=== PATIENT | female | born 1960 | race Caucasian/White ===

== ENCOUNTER → 2016-08-14 | Outpatient (CLI) | payer OTHER ==
--- NOTE | 2016-08-14 13:25 | MA ---
Screening Digital Mammogram With iCAD Analysis Clinical Indications: Routine screening. Technique: Standard cephalocaudal projections are obtained. Digital breast tomosynthesis was performe d in the MLO projection with reconstruction at 1.0 mm slice thickness and composite MLO views reconst ructed. This examination is processed by the iCAD computer aided detection system. Comparison: December 2014, November 2013, November 2012, July 2010, October 2008, October 2007. Breast density: Type C: Heterogeneously dense. Findings: CAD was reviewed. There is a small nodular asymmetry in the central right breast best visua lized on the tomographic series. No suspicious microcalcifications are identified. The left breast is stable in appearance. Impression: Right breast nodular asymmetry requires further evaluation. BI-RADS 0. Recommendation: Spot compression assessment of the right breast with ultrasound suggested if the abno rmality persists on diagnostic evaluation. [facility] will send a result letter to the patient. Negative mammography should not preclude additional workup of a clinically suspicious finding. The patient's information is entered into a reminder system with a target due date for her next mammo gram.
== END ==
LOC: FIMAGING 11:42
DX: Z12.31 Encounter for screening mammogram for malignant neoplasm of breast (principal)

== ENCOUNTER → 2016-08-23 | Outpatient (CLI) | payer OTHER | LOC: FIMAGING 09:05 | PROVIDERS: ATTEND Internal Medicine | DX: Z12.39 Encounter for other screening for malignant neoplasm of breast (principal); R92.8 Other abnormal and inconclusive findings on diagnostic imaging of breast | CPT/HCPCS: G0206 ==

== ENCOUNTER → 2017-01-07 | Outpatient (CLI) | payer OTHER | LOC: BMCIMAGING 15:44 | PROVIDERS: ATTEND Family Medicine | DX: S52.592A Other fractures of lower end of left radius, initial encounter for closed fracture (principal) ==

== ENCOUNTER 2017-01-15 11:33 | Day surgery (SDC) | payer OTHER ==
[2017-01-15] MEDS ORDERED: CLINDAMYCIN 900 MG/DEXTROSE 50 ML IV ONE (12:41)
--- NOTE | 2017-01-15 12:45 | PDHPUP ---
History & Physical Update H&P update statement: This history and physical update is based on an assessment of the patient which was completed after admission or registration (within 24 hours), but prior to the surgery/procedure. H&P update: H&P reviewed & patient examined, no change in patient's condition since H&P completed
[2017-01-15] MEDS ORDERED: LR 1,000 ML IV ONE (12:53)
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
[2017-01-15] MEDS ORDERED: MIDAZOLAM 2 MG/2 ML VIAL IVP ONE (13:14)
[2017-01-15] MEDS ORDERED: PROPOFOL 200 MG/20 ML VIAL ONE (13:28)
[2017-01-15] MEDS ORDERED: fentaNYL 100 MCG/2 ML INJ ONE ×2 (13:29→14:57)
[2017-01-15] MEDS ORDERED: MIDAZOLAM 2 MG/2 ML VIAL ONE (13:47)
[2017-01-15] MEDS ORDERED: BUPIVACAINE 0.5% 30 ML SDV ONE (13:56)
[2017-01-15] MEDS ORDERED: fentaNYL 100 MCG/2 ML INJ IVP PRN (14:12)
[2017-01-15] MEDS ORDERED: NALOXONE HCL 0.4 MG/ML INJ IVP PRN (14:12)
--- NOTE | 2017-01-15 14:14 | POSTOPPROG ---
Post Op Note Date of Operation: 01/15/17 Surgeon: Pablo Israel Anesthesiologist: Isidoro Ford Anesthesia: LMA Pre-op Diagnosis: Left Distal Radius and ulna fracture Post-op Diagnosis: same Indication: displacement of fracture Procedure: fluoroscopic reduction and k wire fixation of ulnar styloid and fluoroscopi Findings: as above Inf/Abcess present in the surg proc area at time of surgery?: No Depth: Deep Incisional (Fascial) EBL: Minimal Total fluids administered: 500cc Complications: none
--- NOTE | 2017-01-15 14:14 | POSTANESTH ---
Post Anesthetic Evaluation Cardiovascular Status: Normal, Stable Respiratory Status: Normal, Stable Level of Consciousness/Mental Status: Can Participate in Eval Pain Control: Adequate, Prn Tx Ordered Nausea/Vomiting Control: Adequate, Prn Tx Ordered Complications Possibly Related to Anesthesia: None Noted
[2017-01-15 14:26] VITALS: TEMP 97.9
[2017-01-15 14:53] VITALS: PULSE 62
--- NOTE | 2017-01-15 14:59 | GOP ---
[f rep st] OPERATIVE REPORT DATE OF OPERATION: 01/15/2017 SURGEON: Pablo Israel MD PREOPERATIVE DIAGNOSIS: Left distal radius and ulnar styloid fracture. POSTOPERATIVE DIAGNOSIS: Left distal radius and ulnar styloid fracture. PROCEDURE PERFORMED: Fluoroscopic reduction and percutaneous K-wire fixation of ulnar styloid fract ure, which was displaced; correction of some of the dorsal tilt of the distal radius restoring lengt h of the distal radius. FINDINGS: INDICATIONS: Ulnar positive variant and displacement of ulnar styloid fracture. DESCRIPTION OF PROCEDURE: Under local infiltration block with 0.5% plain Marcaine and with monitore d anesthesia care and sedation by Anesthesiology, the patient's left arm was prepped and draped in t he usual fashion. Arm tourniquet was applied at 250 mmHg. Longitudinal traction at 10 pounds of lo ngitudinal traction was applied to the left wrist and the fluoroscope was used to manipulate the uln ar styloid into corrected position. Longitudinal traction did improve the alignment of the distal r adius and that was improved further with gentle manipulation. This restored length to essentially n ormal length and made the ulnar styloid reduction and K-wire fixation much easier, that was reduced into anatomic position and then 2 longitudinal K-wires were placed through the styloid and into the shaft of the ulna locking the styloid fragment in place. This in turn would stabilize the distal ra dioulnar joint and evaluation of the distal radioulnar joint revealed nice alignment of the joint wi th the gap at the distal radioulnar joint reduced to normal. The K-wires were cut off outside the s kin level had bent so that they would not migrate and then capped. A bulky soft pressure dressing w as applied followed by powder based fiberglass splint, held in place with an Broderick bandage. She toshia ated the procedure well. Tourniquet deflation resulted in immediate pinking of the digits and she w as brought to the recovery area where detailed postoperative instructions were given prior to discha rge. A prescription for Percocet and Cleocin were provided. She had been given clindamycin intrave nously prior to commencement of surgery. Followup arrangements in the office for about a week posto p for dressing and splint removal and cast application. /[id number]/MODL
[2017-01-15 15:12] VITALS: BP 97/53; RESP 14
[2017-01-15 20:24] VITALS: O2SAT 98
== END 2017-01-15 16:25 | disposition home or self-care (01) ==
LOC: FSGY 11:33
PROVIDERS: ATTEND Specialist
PROC: 0PSL34Z Reposition Left Ulna with Internal Fixation Device, Percutaneous Approach (ICD-10-PCS; principal; 2017-01-15 13:00)
DX: S52.612A Displaced fracture of left ulna styloid process, initial encounter for closed fracture (principal); S52.502A Unspecified fracture of the lower end of left radius, initial encounter for closed fracture; Y93.55 Activity, bike riding; V18.0XXA Pedal cycle driver injured in noncollision transport accident in nontraffic accident, initial encounter; Y99.8 Other external cause status
CPT/HCPCS: 25651; C1769; J2250; J2704; J3010

== ENCOUNTER → 2017-02-21 | Outpatient (CLI) | payer OTHER | LOC: FIMAGING 11:41 | PROVIDERS: ATTEND Internal Medicine | DX: R92.8 Other abnormal and inconclusive findings on diagnostic imaging of breast (principal) | CPT/HCPCS: G0206 ==

== ENCOUNTER → 2017-06-20 | Outpatient (CLI) | payer OTHER | LOC: FIMAGING 10:24 | PROVIDERS: ATTEND Physical Medicine & Rehabilitation | DX: Z13.820 Encounter for screening for osteoporosis (principal); M85.89 Other specified disorders of bone density and structure, multiple sites; S62.90XD Unspecified fracture of unspecified hand, subsequent encounter for fracture with routine healing ==

== ENCOUNTER → 2017-10-08 | Outpatient (CLI) | payer OTHER | LOC: FIMAGING 10:41 | PROVIDERS: ATTEND Internal Medicine | DX: Z12.31 Encounter for screening mammogram for malignant neoplasm of breast (principal) ==

== ENCOUNTER → 2018-10-31 | Outpatient (CLI) | payer OTHER | LOC: FIMAGING 10:48 | PROVIDERS: ATTEND Internal Medicine | DX: Z12.31 Encounter for screening mammogram for malignant neoplasm of breast (principal) ==